=== PATIENT | male | born 1990 | race Caucasian/White ===

== ENCOUNTER 2017-04-09 10:25 | Emergency (ER) | payer MEDICAID ==
[~2017-04-09] VITALS: Ht 182.9 cm; Wt 72.7 kg
[2017-04-09 11:30] VITALS: BP 130/74; PULSE 64; TEMP 98.1
== END 2017-04-09 11:35 | disposition home or self-care (01) ==
LOC: COL.ER 10:25
DX: R21 Rash and other nonspecific skin eruption (principal)
CPT/HCPCS: J7512